=== PATIENT | male | born 1990 | race Caucasian/White ===

== ENCOUNTER 2018-12-27 06:43 | Emergency (ER) | payer OTHER | END 2018-12-27 07:24 | disposition home or self-care (01) | LOC: MADERS 06:43 | DX: H10.13 Acute atopic conjunctivitis, bilateral (principal); F17.220 Nicotine dependence, chewing tobacco, uncomplicated | CPT/HCPCS: 99283 ==

== ENCOUNTER 2019-03-31 07:02 | Emergency (ER) | payer OTHER ==
[2019-03-31] MEDS ORDERED: Acetaminophen 500 MG TAB ONE (07:47)
[2019-03-31] MEDS ORDERED: Dexamethasone 4 MG TAB ONE (08:03)
[2019-03-31] MEDS ORDERED: AMOXicillin 250 MG CAP ONE (08:03)
== END 2019-03-31 08:25 | disposition home or self-care (01) ==
LOC: MADERS 07:02
DX: J02.0 Streptococcal pharyngitis (principal); F17.220 Nicotine dependence, chewing tobacco, uncomplicated
CPT/HCPCS: 87430; 87804; 99283; J8540

== ENCOUNTER 2019-11-07 17:00 | Emergency (ER) | payer OTHER, SELFPAY | END 2019-11-07 17:52 | disposition home or self-care (01) | LOC: MADERS 17:00 | DX: J10.1 Influenza due to other identified influenza virus with other respiratory manifestations (principal); F17.220 Nicotine dependence, chewing tobacco, uncomplicated | CPT/HCPCS: 87081; 87430; 87804; 99283 ==

== ENCOUNTER 2022-01-23 20:00 | Emergency (ER) | payer OTHER, SELFPAY ==
[2022-01-23] MEDS ORDERED: Ondansetron ODT 4 MG TAB ONE (20:27)
[2022-01-23] MEDS ORDERED: Loperamide HCl 2 MG CAP ONE (20:27)
== END 2022-01-23 21:14 | disposition home or self-care (01) ==
LOC: MADERS 20:00
DX: J10.1 Influenza due to other identified influenza virus with other respiratory manifestations (principal); R11.2 Nausea with vomiting, unspecified; F17.220 Nicotine dependence, chewing tobacco, uncomplicated
CPT/HCPCS: 99283; Q0162

== ENCOUNTER 2022-03-12 06:02 | Emergency (ER) | payer OTHER ==
[2022-03-12 06:23] LABS: Bilirubin Negative (Negative); Blood, Urine Large (Negative); Glucose, Urine (Dipstick) Negative (Negative); Ketone, Urine Negative (Negative); Leukocyte Negative (Negative); Nitrite Negative (Negative); Protein, Urine (Dipstick) Negative (Neg-Trace); Urobilinogen 0.2 mg/dL (Less than 2)
[2022-03-12 06:24] LABS: Clarity Hazy (Clear); Specific Gravity, Urine 1.027 (1.002-1.036)
[2022-03-12] MEDS ORDERED: Morphine 4 MG/ML VIAL ONE (06:28)
[2022-03-12] MEDS ORDERED: Sodium Chloride 0.9% 1,000 ML ONE (06:29)
[2022-03-12] MEDS ORDERED: Ondansetron PF 4 MG/2 ML Vial ONE (06:29)
[2022-03-12] MEDS ORDERED: Ketorolac Tromethamine 30 MG/ML VIAL ONE (06:29)
[2022-03-12 06:33] LABS: Bacteria/HPF None Seen HPF (None Seen); Mucous/LPF 2+ LPF (<2+); RBC/HPF Greater than 50 HPF (0-3); Squamous Epithelial 0-3 HPF (0-3); Transitional Epithelial 0-3 HPF (None Seen); WBC/HPF 0-3 HPF (0-3)
[2022-03-12 06:34] LABS: Calcium Oxalate Crystals 1+ HPF (None Seen)
[2022-03-12 06:46] LABS: #Basophils 0.1 thou/uL (0.0-0.2); #Eosinphils 0.1 thou/uL (0.0-0.7); #Lymphocytes 3.7 thou/uL (1.20-3.40); #Monocytes 1.1 thou/uL (0.11-0.59); #Neutrophils 4.3 thou/uL (1.40-6.50); %Basophils 1.3 % (0.0-1.0); %Eosinophils 1.5 % (0.0-10.0); %Lymphocytes 39.6 % (21.0-51.0); %Monocytes 11.7 % (0.0-10.0); %Neutrophils 45.8 % (42.0-75.0); Hemoglobin 16.2 g/dL (14.0-18.0); Mean Corpuscular HGB CONC 33.4 g/dL (32.0-36.0); Mean Corpuscular Hemoglobin 29.6 pg (27.0-31.0); Mean Corpuscular Volume 88.6 fL (78.0-98.0); Mean Platelet Volume 9.8 fL (7.4-10.4); Platelet Count 237 thou/uL (130-400); Red Blood Cell (RBC) Count 5.47 mill/uL (4.70-6.10); White Blood Cell (WBC) Count 9.4 thou/uL (4.8-10.8)
[2022-03-12 06:52] LABS: ALT (SGPT) 23 U/L (8-55); AST (SGOT) 18 U/L (5-34); Albumin 4.2 g/dL (3.5-5.0); Alkaline Phosphatase 76 U/L (40-110); Anion Gap 18 mmol/L (10-20); BUN (Urea Nitrogen) 12 mg/dL (8.9-20.6); Bilirubin, Total 0.9 mg/dL (0.2-1.2); Calc. Creatinine Clearance 0 mL/min (70-130); Calcium 9.1 mg/dL (7.8-10.44); Chloride 106 mmol/L (98-107); Globulin 3.2 g/dL (2.4-3.5); Glucose 127 mg/dL (70-105); Lipase 25 U/L (8-78); Potassium 3.7 mmol/L (3.5-5.1); Protein, Total 7.4 g/dL (6.0-8.3); Sodium 140 mmol/L (136-145)
[2022-03-12 07:02] LABS: Carbon Dioxide 20 mmol/L (22-29)
== END 2022-03-12 08:30 | disposition home or self-care (01) ==
LOC: MADERS 06:02
DX: N20.1 Calculus of ureter (principal); F17.220 Nicotine dependence, chewing tobacco, uncomplicated
CPT/HCPCS: 74176; 80053; 81003; 81015; 83690; 85025; 96374; 96375; J1885; J2270; J2405; J7050

== ENCOUNTER 2023-05-18 18:39 | Emergency (ER) | payer OTHER ==
[2023-05-18] MEDS ORDERED: Ketorolac Tromethamine 30 MG/ML VIAL ONE (19:18)
[2023-05-18] MEDS ORDERED: Sodium Chloride 0.9% 1,000 ML ONE ×2 (19:18→20:06)
[2023-05-18 19:36] LABS: ALT (SGPT) 128 U/L (8-55); AST (SGOT) 67 U/L (5-34); Albumin 4.5 g/dL (3.5-5.0); Alkaline Phosphatase 123 U/L (40-110); Anion Gap 16 mmol/L (10-20); BUN (Urea Nitrogen) 17 mg/dL (8.9-20.6); Bilirubin, Total 0.8 mg/dL (0.2-1.2); Calc. Creatinine Clearance 0 mL/min (70-130); Calcium 9.7 mg/dL (7.8-10.44); Carbon Dioxide 21 mmol/L (22-29); Chloride 99 mmol/L (98-107); Estimated GFR 75; Globulin 4.3 g/dL (2.4-3.5); Glucose 100 mg/dL (70-105); Potassium 3.6 mmol/L (3.5-5.1); Protein, Total 8.8 g/dL (6.0-8.3); Sodium 132 mmol/L (136-145)
[2023-05-18 19:39] LABS: Band 15 % (5-11); Eosinophils 1 % (0-10); Hemoglobin 15.9 g/dL (14.0-18.0); Lymphocytes 37 % (21-51); MDiff Complete? YES; Mean Corpuscular HGB CONC 34.7 g/dL (32.0-36.0); Mean Corpuscular Hemoglobin 30.4 pg (27.0-31.0); Mean Corpuscular Volume 87.7 fl (78.0-98.0); Mean Platelet Volume 8.9 fL (7.4-10.4); Monocytes 7 % (0-10); Neutrophil 35 % (42-75); Platelet Adequacy Comment Appears Adequate; Platelet Count 195 10x3/uL (130-400); RBC Distribution Width 11.9 % (11.5-14.5); Reactive Lymphocytes 5 % (0-10); Red Blood Cell (RBC) Count 5.23 mill/uL (4.70-6.10); White Blood Cell (WBC) Count 10.1 10x3/uL (4.8-10.8)
[2023-05-18 19:47] LABS: SARS-CoV-2 NAA Rapid Test DETECTED (NotDetected)
== END 2023-05-18 20:59 | disposition home or self-care (01) ==
LOC: MADERS 18:39
DX: U07.1 COVID-19 (principal); J20.8 Acute bronchitis due to other specified organisms; F17.220 Nicotine dependence, chewing tobacco, uncomplicated
CPT/HCPCS: 71046; 80053; 85025; 87804; 96361; 96374; J1885; J7050; U0002

== ENCOUNTER 2023-05-22 14:03 | Emergency (ER) | payer OTHER ==
[2023-05-22] MEDS ORDERED: Ketorolac Tromethamine 30 MG/ML VIAL ONE (14:30)
[2023-05-22] MEDS ORDERED: Lactated Ringer's 1,000 ML ONE (14:30)
[2023-05-22] MEDS ORDERED: Benzonatate 100 MG CAP ONE (14:51)
[2023-05-22] MEDS ORDERED: Prochlorperazine 10 MG/2 ML VIAL ONE (14:51)
[2023-05-22] MEDS ORDERED: Albuterol 200 PUFF (6.7GM INHALER) ONE (14:51)
[2023-05-22] MEDS ORDERED: diphenhydrAMINE 50 MG/ML VIAL ONE (14:51)
[2023-05-22 15:04] LABS: Prothrombin Time 13.2 sec (12.0-14.7)
[2023-05-22 15:05] LABS: PTT 32.9 sec (22.9-36.1)
[2023-05-22 15:08] LABS: ALT (SGPT) 200 U/L (8-55); AST (SGOT) 124 U/L (5-34); Albumin 3.8 g/dL (3.5-5.0); Alkaline Phosphatase 145 U/L (40-110); Anion Gap 13 mmol/L (10-20); BUN (Urea Nitrogen) 8 mg/dL (8.9-20.6); Bilirubin, Total 0.6 mg/dL (0.2-1.2); Calc. Creatinine Clearance 0 mL/min (70-130); Calcium 9.1 mg/dL (7.8-10.44); Carbon Dioxide 22 mmol/L (22-29); Chloride 106 mmol/L (98-107); Estimated GFR 118; Globulin 3.9 g/dL (2.4-3.5); Glucose 91 mg/dL (70-105); Protein, Total 7.7 g/dL (6.0-8.3); Sodium 137 mmol/L (136-145)
[2023-05-22 15:29] LABS: Band 9 % (5-11); Eosinophils 2 % (0-10); Hemoglobin 14.8 g/dL (14.0-18.0); Lymphocytes 52 % (21-51); MDiff Complete? YES; Mean Corpuscular HGB CONC 33.7 g/dL (32.0-36.0); Mean Corpuscular Volume 89.2 fl (78.0-98.0); Mean Platelet Volume 7.9 fL (7.4-10.4); Monocytes 5 % (0-10); Neutrophil 30 % (42-75); Platelet Adequacy Comment Appears Decreased; Platelet Count 193 10x3/uL (130-400); RBC Distribution Width 12.6 % (11.5-14.5); Reactive Lymphocytes 2 % (0-10); Red Blood Cell (RBC) Count 4.92 mill/uL (4.70-6.10); White Blood Cell (WBC) Count 7.1 10x3/uL (4.8-10.8)
== END 2023-05-22 16:10 | disposition home or self-care (01) ==
LOC: MADERS 14:03
DX: U07.1 COVID-19 (principal); R74.01 Elevation of levels of liver transaminase levels; F17.220 Nicotine dependence, chewing tobacco, uncomplicated
CPT/HCPCS: 71045; 80053; 83605; 85025; 85610; 85730; 87040; 94760; 96361; 96374; 96375; J0780; J1200; J1885; J7120

== ENCOUNTER 2024-10-07 19:55 | Emergency (ER) | payer OTHER, SELFPAY | END 2024-10-07 20:53 | disposition home or self-care (01) | LOC: MADERS 19:55 | DX: J20.9 Acute bronchitis, unspecified (principal); F17.220 Nicotine dependence, chewing tobacco, uncomplicated | CPT/HCPCS: 99283 ==

== ENCOUNTER 2025-07-18 12:45 | Emergency (ER) | payer OTHER, SELFPAY | END 2025-07-18 13:44 | disposition home or self-care (01) | LOC: MADERS 12:45 | DX: K52.9 Noninfective gastroenteritis and colitis, unspecified (principal); E66.9 Obesity, unspecified; F17.220 Nicotine dependence, chewing tobacco, uncomplicated | CPT/HCPCS: 99283; Q0162 ==